=== PATIENT | male | born 1970 ===

== ENCOUNTER 2016-07-26 18:13 | Emergency (ER) | payer BC ==
[2016-07-26] MEDS ORDERED: Aspirin EC Low Dose* 81 MG TAB.EC PO ONE (18:53)
[2016-07-26] MEDS ORDERED: Aspirin Low Dose CHEW TAB* 81 MG PO ONE (18:58)
[2016-07-26] MEDS ORDERED: Aspirin Low Dose CHEW TAB* 81 MG ONE (18:58)
[2016-07-26 19:04] VITALS: BP 153/86
--- NOTE | 2016-07-27 01:04 | UC ---
Janes Morris SooYoung, scribed for Gisselle Vaughan MD on 07/26/16 at 1842 . Syncope/New Syncope HPI - HPI Summary HPI Summary: A 46 y/o M presents to [facility] with c/o near-syncopal episode onset around 1500. It felt like he had tunnel vision, became incredibly tired. He still feels as though its somewhat present. Associated sx: intermittent nausea and burping for past two days. Denies chest pain, diaphoresis, heart palpitations. Pert PMHx: heart murmur as a child. States he hasn't been to a doctor in a while. 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 He felt fine today. He takes a multivitamin. - History Of Current Complaint Chief Complaint: UCGeneralIllness Stated Complaint: DIZZINESS Time Seen by Provider: 07/26/16 18:31 Hx Obtained From: Patient Onset/Duration: Lasting Hours, Still Present Activity At Onset: At Rest - Allergies/Home Medications Allergies/Adverse Reactions: Allergies Allergy/AdvReac Type Severity Reaction Status Date / Time No Known Allergies Allergy Verified 07/26/16 18:28 Home Medications: Home Medications Multiple Vitamins W/ Minerals [Multivitamin Adults] 1 tab PO DAILY 07/26/16 [ History Confirmed 07/26/16] PMH/Surg Hx/FS Hx/Imm Hx Previously Healthy: No Cardiovascular History Of: Reports: Cardiac Disorders - HEART MURMUR as a child Neurological History Of: Denies: Dementia - Surgical History Surgical History: Yes Surgery Procedure, Year, and Place: APPENDECTOMY - Family History Known Family History: Positive: Cardiac Disease - maternal grandfather - [place] - Social History Occupation: Employed Full-time Lives: Alone Alcohol Use: Occasionally Substance Use Type: None Smoking Status (MU): Current Every Day Smoker Type: eCigarettes Review of Systems Constitutional: Fatigue, Other - denies: diaphoresis Skin: Negative Eyes: Other - see hpi ENT: Other - see hpi Respiratory: Negative Cardiovascular: Negative Gastrointestinal: Other - pos: nausea; belching Genitourinary: Negative Motor: Weakness Neurovascular: Negative Musculoskeletal: Other: Neurological: Other - pos: near-syncopal episode All Other Systems Reviewed And Are Negative: Yes Physical Exam Triage Information Reviewed: Yes Appearance: Well-Nourished - sitting up. conversing easily and appropriately. NAD. nontoxic appearance. non-diaphoretic. Vital Signs: Initial Vital Signs Temp 98.3 F 07/26/16 18:18 Pulse 69 07/26/16 18:18 Resp 16 07/26/16 18:18 BP 142/105 07/26/16 18:18 Pulse Ox 99 07/26/16 18:18 Vital Signs Reviewed: Yes Eye Exam: Normal ENT Exam: Normal Neck exam: Normal - no jvd Respiratory Exam: Normal Respiratory: Positive: Chest non-tender, Lungs clear, Normal breath sounds, No respiratory distress Cardiovascular Exam: Normal - ? s1 click? Cardiovascular: Positive: RRR, No Murmur, Pulses Normal, Brisk Capillary Refill Abdominal Exam: Normal Abdomen Description: Positive: Nontender Musculoskeletal Exam: Normal Neurological Exam: Normal Psychological Exam: Normal Skin Exam: Normal - Additional Comments Appearance: Well-Nourished Eye Exam: Normal ENT Exam: Normal Neck exam: Normal, no adenopathy appreciated Respiratory Exam: Chest non-tender, Lungs clear, Normal breath sounds, No respiratory distress, No accessory muscle use Cardiovascular Exam: Normal Cardiovascular: REGULAR RHYTHM, No Murmur, Pulses Normal - sitting up. HEART RATE CORRELATES WITH L RADIAL PULSE, Brisk Capillary Refill, QUESTIONS S1 CLICK Abdominal Exam: Normal, NO BRUIT Abdomen Description: Nontender, No organomegaly, Soft Bowel Sounds: Present Musculoskeletal Exam: Normal, NO BACK PAIN OR TENDERNESS, NO LE EDEMA Musculoskeletal: Strength Intact Neurological Exam: Normal: nonfocal, grossly intact Psychological Exam: Normal: conversing easily and appropriately Skin Exam: Normal: no visible or reported rash Diagnostics - EKG Cardiac Rhythm: Sinus: Old - 79 bpm, probable LVH, probable early repol, MN interval 135, no old EKG for comparison Syncope Course/Dx - Course Course Of Treatment: Pt's s/sx are concerning. Hx heart murmer (type?) as a child. Has not seen a pcp in years. + e-cigarettes. EKG as noted, no old for comp. Diff dx includes multiple etiologies for stomach upset and near-syncopal episode. Transfer to ED -> pt offered and encouraged EMS, but he politely but firmly declines. Will go to ED pov. ASA 81mg pox 4 prior to transfer. I spoke wiht Dr. Givens, ED. - Differential Dx/Diagnosis Provider Diagnoses: Weakness, near-syncope - Physician Notification/Consults Discussed Patient Care With: Dr. Givens, ED physician Time Discussed With Above Provider: 18:49 Instructed by Provider To: Transfer Discharge - Discharge Plan Condition: Guarded Disposition: TRANS HIGHER LVL OF CARE FAC Discharge Disposition Comment: transfer [facility] by car The documentation as recorded by the Janes sparks SooYoung accurately reflects the service I personally performed and the decisions made by me, Gisselle Vaughan MD.
== END 2016-07-26 19:15 | disposition short-term general hospital (02) ==
LOC: UCEAST 18:13
DX: R53.1 Weakness (principal); R55 Syncope and collapse; F17.210 Nicotine dependence, cigarettes, uncomplicated
CPT/HCPCS: 99212; A9270-GY; G0463

== ENCOUNTER 2016-07-26 19:27 | Emergency (ER) | payer BC ==
[2016-07-26] MEDS ORDERED: NS 0.9% 1000 ML* 1,000 ML IV ONE (20:18)
--- NOTE | 2016-07-26 20:43 | RAD ---
HISTORY: Dizziness COMPARISONS: None VIEWS: 2: Frontal dual-energy and lateral views of the chest. FINDINGS: CARDIOMEDIASTINAL SILHOUETTE: The cardiomediastinal silhouette is normal. RAISSA: The raissa are normal. PLEURA: The costophrenic angles are sharp. No pleural abnormalities are noted. LUNG PARENCHYMA: The lungs are clear. ABDOMEN: The upper abdomen is clear. There is no subphrenic gas. BONES AND SOFT TISSUES: No bone or soft tissue abnormalities are noted. OTHER: None. IMPRESSION: NO ACTIVE CARDIOPULMONARY DISEASE.
--- NOTE | 2016-07-26 20:54 | RAD ---
HISTORY: Dizziness COMPARISONS: None TECHNIQUE: Multiple contiguous axial CT scans were obtained of the head without intravenous contrast. FINDINGS: HEMORRHAGE/INFARCT: There is no hemorrhage or acute infarct. MASSES/SHIFT: There is no mass or shift. EXTRA-AXIAL SPACES: There are no extra-axial fluid collections. SULCI AND VENTRICLES: The sulci and ventricles are normal in size and position for the patient's stated age. CEREBRUM: There are no focal parenchymal abnormalities. BRAINSTEM: There are no focal parenchymal abnormalities. CEREBELLUM: There are no focal parenchymal abnormalities. VESSELS: The vessels are grossly normal. PARANASAL SINUSES: There is a mucous retention cyst of the left maxillary sinus ORBITS: The orbits are unremarkable. BONES AND SOFT TISSUE: No bone or soft tissue abnormalities are noted. OTHER: None IMPRESSION: NO ACUTE INTRACRANIAL PATHOLOGY.
[2016-07-26 21:33] LABS: Hematocrit 52 % (42-52); Hemoglobin 17.5 g/dl (14.0-18.0); Mean Corpuscular HGB Conc 34 g/dl (31-36); Mean Corpuscular Hemoglobin 30 pg (27-31); Mean Corpuscular Volume 88 fL (80-94); Mean Platelet Volume 9 um3 (7.4-10.4); Red Blood Count 5.87 10^6/ul (4.0-5.4); Red Cell Distribution Width 12 % (10.5-15); White Blood Count 7.4 10^3/ul (3.5-10.8)
[2016-07-26 21:40] LABS: Urine Bilirubin Negative (Negative); Urine Glucose Negative (Negative); Urine Nitrite Negative (Negative)
[2016-07-26 21:49] LABS: ALT 13 U/L (7-52); AST 17 U/L (13-39); Albumin 4.9 g/dL (3.2-5.2); Alkaline Phosphatase 63 U/L (34-104); Anion Gap 6 mmol/L (2-11); Blood Urea Nitrogen 14 mg/dL (6-24); C Reactive Protein < 1.00 mg/L (< 5.00); CO2 Carbon Dioxide 30 mmol/L (22-32); Chloride 100 mmol/L (101-111); Creatine Kinase 59 U/L (10-223); EGFR African American 104.4 (>60); EGFR Non-African American 81.2 (>60); Globulin 3.4 g/dL (2-4); Glucose 90 mg/dL (70-100); Magnesium 2.4 mg/dL (1.9-2.7); Sodium 136 mmol/L (133-145); Total Protein 8.3 g/dL (6.4-8.9)
[2016-07-26 22:05] LABS: Benzodiazepine Urine Screen None Detected (None Detect)
[2016-07-26 22:28] LABS: TSH (Thyroid Stimulating Horm) 0.61 mcIU/mL (0.34-5.60)
--- NOTE | 2016-07-26 23:15 | ED ---
Suresh Morris Billy, scribed for Nikko Givens MD on 07/26/16 at 2009 . Dizziness - HPI Summary HPI Summary: Patient is a 46 year-old male coming to [facility] with intermittent sensations of near-syncope, dizziness, and nausea today since 1500. Symptoms are worse with rapid change in position. He describes "tunnel vision." Denies any strenuous exertion at onset, stating that he was picking up his child from school. He denies any CP or SOB. Denies vomiting or diarrhea. He denies abdominal pain, but he states he feels that he has been belching more than usual. Denies recent URI symptoms such as cough, sore throat, rhinorrhea. He states that he has had intermittent palpitations for the last several months. Patient reports drinking a 12-cup pot of coffee daily. - History Of Current Complaint Chief Complaint: EDDizziness Stated Complaint: DIZZINESS,NAUSEA-UCEAST XFER Time Seen by Provider: 07/26/16 19:59 Hx Obtained From: Patient Onset/Duration: Still Present Timing: Constant Severity Initially: Moderate Severity Currently: Moderate Character: Dizzy - near-syncope Aggravating Factor(s): Position Change Alleviating Factor(s): Nothing Associated Signs And Symptoms: Positive: Nausea, Palpitations - intermittent for several months, Visual Changes - "tunnel vision", Other: - belching. Negative: Vomiting, Diarrhea, Chest Pain, SOB - Allergies/Home Medications Allergies/Adverse Reactions: Allergies Allergy/AdvReac Type Severity Reaction Status Date / Time No Known Allergies Allergy Verified 07/26/16 18:28 PMH/Surg Hx/FS Hx/Imm Hx Endocrine/Hematology History: Denies: Hx Diabetes Cardiovascular History: Denies: Hx Hypertension - Surgical History Surgery Procedure, Year, and Place: APPENDECTOMY Infectious Disease History: No Infectious Disease History: Denies: Traveled Outside the [place] in Last 30 Days - Family History Known Family History: Positive: Cardiac Disease - Social History Alcohol Use: Occasionally Substance Use Comment - Amount & Last Used: 12-cup pot of coffee a day Smoking Status (MU): Current Every Day Smoker Type: eCigarettes Review of Systems Negative: Sore Throat, Ear Ache, Nasal Discharge Positive: Palpitations. Negative: Chest Pain Negative: Shortness Of Breath, Cough Positive: Nausea, Other - belching. Negative: Abdominal Pain Neurological: Other - dizzy, near-syncope, tunnel vision All Other Systems Reviewed And Are Negative: Yes Physical Exam - Summary Physical Exam Summary: VITAL SIGNS: Reviewed. GENERAL: Patient is a well developed and nourished male who is lying comfortable in the stretcher. Patient is not in any acute respiratory distress. HEAD AND FACE: No signs of trauma. No ecchymosis, hematomas or skull depressions. No sinus tenderness. EYES: PERRLA, EOMI x 2, No injected conjunctiva, no nystagmus. No photophobia. EARS: Hearing grossly intact. Ear canals and tympanic membranes are within normal limits. MOUTH: Oropharynx within normal limits. NECK: Supple, trachea is midline, no adenopathy, no JVD, no carotid bruit, no c- spine tenderness, neck with full ROM. No meningeal signs, no Kernig's or brudzinskis signs. CHEST: Symmetric, no tenderness at palpation LUNGS: Clear to auscultation bilaterally. No wheezing or crackles. CVS: Regular rate and rhythm, S1 and S2 present, no murmurs or gallops appreciated. ABDOMEN: Soft, non-tender. No signs of distention. No rebound no guarding, and no masses palpated. Bowel sounds are normal. EXTREMITIES: FROM in all major joints, no edema, no cyanosis or clubbing. NEURO: Alert and oriented x 3. No acute neurological deficits. Speech is normal and follows commands. SKIN: Dry and warm Triage Information Reviewed: Yes Vital Signs On Initial Exam: Initial Vitals Temp Pulse Resp BP Pulse Ox 98.2 F 85 14 138/100 100 07/26/16 19:31 07/26/16 19:31 07/26/16 19:31 07/26/16 19:31 07/26/16 19:31 Vital Signs Reviewed: Yes Diagnostics - Vital Signs Vital Signs Temp Pulse Resp BP Pulse Ox 07/26/16 19:31 98.2 F 85 14 138/100 100 - Laboratory Result Diagrams: 07/26/16 21:25 07/26/16 21:25 Lab Statement: Any lab studies that have been ordered have been reviewed, and results considered in the medical decision making process. - Radiology CXR Xray Interpretation: No Acute Changes Radiology Interpretation Completed By: Radiologist - CT Brain CT Interpretation: No Acute Changes CT Interpretation Completed By: Radiologist - EKG 1935 EKG Interpretation: NSR 76 bpm, no ST elevation Re-Evaluation - Re-Evaluation First Eval Re-Evaluation Time: 23:09 Change: Improved Dizzy Course/Dx - Course Assessment/Plan: Patient is a 46 year-old male coming to [facility] with intermittent sensations of near-syncope, dizziness, and nausea today since 1500. Symptoms are worse with rapid change in position. He describes "tunnel vision." Denies any strenuous exertion at onset, stating that he was picking up his child from school. He denies any CP or SOB. Denies vomiting or diarrhea. He denies abdominal pain, but he states he feels that he has been belching more than usual. Denies recent URI symptoms such as cough, sore throat, rhinorrhea. He states that he has had intermittent palpitations for the last several months. Patient reports drinking a 12-cup pot of coffee daily. Bloodwork WNL except for chloride of 100. Troponin is negative. UA shows trace ketones due to slight dehydration. CXR shows no active cardiopulmonary disease. CT brain shows no acute intracranial pathology. EKG is NSR without ST elevations. In the ED course, he was given IV fluids and symptoms have significantly improved. The patient was instructed to return to the ED with ROJAS, fevers, chills, neck pain, abdominal pain, CP, or SOB. He understands and agrees. He is hemodynamically stable, A&Ox3. - Diagnoses Differential Diagnosis/HQI/PQRI: Anxiety, Benign Paroxysmal Positional Vertigo, CVA, Transient Ischemic Attack, Vasovagal Reaction Provider Diagnoses: Palpitations, Dizziness Discharge - Discharge Plan Condition: Stable Disposition: HOME Patient Education Materials: Palpitations (ED), Dizziness (ED) Referrals: Antione Liz MD [Primary Care Provider] - The documentation as recorded by the Suresh sparks Billy accurately reflects the service I personally performed and the decisions made by me, Nikko Givens MD.
[2016-07-26 23:38] VITALS: BP 130/73
== END 2016-07-26 23:42 | disposition home or self-care (01) ==
LOC: ED 19:27
DX: R00.2 Palpitations (principal); R42 Dizziness and giddiness; R55 Syncope and collapse; R11.0 Nausea
CPT/HCPCS: 36415; 70450; 71020; 80053; 80307; 81003; 82550; 83605; 83735; 83880; 84443; 84484; 85025; 85730; 86140; 93005; 99283